=== PATIENT | male | born 1980 | race Caucasian/White ===

== ENCOUNTER → 2021-07-02 | Outpatient (CLI) | payer OTHER ==
[~2021-07-02] MED LIST: IODIXANOL 320MG/ML 100ML BTL IV ONE
[2021-07-02 09:38] LABS: Calcium 9.1 mg/dL (8.5-10.1); Potassium 5.2 mmol/L (3.5-5.1)
[2021-07-02 09:42] LABS: BUN/Creatinine Ratio 15.4
== END | disposition home or self-care (01) ==
LOC: CT 07:42
DX: N43.3 Hydrocele, unspecified (principal); M43.17 Spondylolisthesis, lumbosacral region; R31.29 Other microscopic hematuria
CPT/HCPCS: 36415; 74178; 80048; Q9967

== ENCOUNTER → 2021-07-31 | Outpatient (CLI) | payer OTHER ==
[2021-07-31 14:52] LABS: Urine Bacteria FEW /hpf (None Seen); Urine Blood TRACE /uL (Negative); Urine Mucus FEW (None Seen); Urine Specific Gravity 1.021 (1.001-1.035); Urine WBC 1 /hpf (0 - 3)
== END | disposition home or self-care (01) ==
LOC: LAB 13:39
PROVIDERS: ATTEND Urology
DX: N39.8 Other specified disorders of urinary system (principal)
CPT/HCPCS: 81001; 87086

== ENCOUNTER 2022-05-06 17:00 | Inpatient (IN) | payer OTHER ==
[~2022-05-06] VITALS: Ht 182.9 cm; Wt 95.2 kg
[2022-05-06 17:56] LABS: Basophils # (auto) 0.1 10 ^3/uL (0-0.2); Basophils % (auto) 0.8 % (0.0-2.0); Eosinophils # (auto) 0.1 10 ^3/uL (0-0.8); Eosinophils % (auto) 1.2 % (0.0-7.0); Hematocrit 44.9 % (41.0-53.0); Hemoglobin 15.5 g/dL (13.5-17.5); Lymphocytes # (auto) 1.9 10 ^3/uL (0.4-5.4); Lymphocytes % (auto) 25.6 % (10.0-50.0); Mean Corpuscular Hemoglobin 31.8 pg (28.0-32.0); Mean Corpuscular Hgb Conc. 34.4 g/dL (32.0-36.0); Mean Corpuscular Volume 92.3 fL (80.0-100.0); Monocytes # (auto) 0.6 10 ^3/uL (0-1.3); Monocytes % (auto) 8.4 % (0.0-12.0); Neutrophils # (auto) 4.7 10 ^3/uL (1.6-8.6); Nucleated Red Blood Cells % 0.1 %; Red Blood Cells 4.87 10^6/uL (4.5-5.90); Red Cell Distribution Width 12.7 % (11.8-14.3); White Blood Cell 7.3 10^3/uL (4.4-10.8)
[2022-05-06 18:15] LABS: Albumin 4.6 g/dL (3.4-5.0); Calcium 9.7 mg/dL (8.5-10.1); Potassium 4.1 mmol/L (3.5-5.1)
[2022-05-06 18:19] LABS: BUN/Creatinine Ratio 14.6; Total Protein 7.8 g/dL (6.4-8.2)
[2022-05-06 20:36] LABS: Basophils # (auto) 0 10 ^3/uL (0-0.2); Basophils % (auto) 0.6 % (0.0-2.0); Eosinophils # (auto) 0.1 10 ^3/uL (0-0.8); Eosinophils % (auto) 1.4 % (0.0-7.0); Hematocrit 45.8 % (41.0-53.0); Hemoglobin 15.9 g/dL (13.5-17.5); Lymphocytes # (auto) 2.1 10 ^3/uL (0.4-5.4); Lymphocytes % (auto) 29.3 % (10.0-50.0); Mean Corpuscular Hemoglobin 31.9 pg (28.0-32.0); Mean Corpuscular Hgb Conc. 34.8 g/dL (32.0-36.0); Mean Corpuscular Volume 91.7 fL (80.0-100.0); Monocytes # (auto) 0.6 10 ^3/uL (0-1.3); Monocytes % (auto) 8.5 % (0.0-12.0); Neutrophils # (auto) 4.4 10 ^3/uL (1.6-8.6); Neutrophils % (auto) 60.2 % (37.0-80.0); Nucleated Red Blood Cells % 0.2 %; Red Cell Distribution Width 13.1 % (11.8-14.3); White Blood Cell 7.3 10^3/uL (4.4-10.8)
[2022-05-06] MEDS ORDERED: HYDROcodone-ACET 5/325MG TAB PO PRN (21:15)
[2022-05-06] MEDS ORDERED: MORPHINE SULFATE INJ 2 MG/ml SYRG IV PRN (21:15)
[2022-05-06] MEDS ORDERED: ACETAMINOPHEN 325 MG TAB PO PRN (21:15)
[2022-05-06] MEDS ORDERED: ONDANSETRON HCL 4 MG/2 ML VIAL IV PRN (21:15)
[2022-05-06] MEDS ORDERED: SODIUM CHLORIDE 0.9% 1,000 ML IV ONE (21:30)
[2022-05-07 01:33] LABS: Urine Bacteria NONE SEEN /hpf (None Seen); Urine Blood TRACE /uL (Negative); Urine Hyaline Cast FEW /lpf (0 - 2); Urine Mucus FEW (None Seen); Urine Specific Gravity 1.015 (1.001-1.035); Urine WBC 2 /hpf (0 - 3)
[2022-05-07] MEDS ORDERED: ENOXAPARIN SOD 40 MG/0.4 ML SYRINGE SC ONE (01:45)
[2022-05-07] MEDS ORDERED: ONDANSETRON HCL 4 MG/2 ML VIAL IV ONE (01:45)
[2022-05-07] MEDS ORDERED: HYDROcodone-ACET 10/325MG TAB PO PRN (01:45)
[2022-05-07] MEDS ORDERED: PIPERACILLIN-TAZOB 3.375GM 100 ML IV ONE (06:00)
[2022-05-07] MEDS ORDERED: MORPHINE SULFATE INJ 2 MG/ml SYRG IV PRN (06:45)
[2022-05-07] MEDS ORDERED: NITROGLYCERIN 0.4 MG SL TAB SL PRN (06:45)
[2022-05-07] MEDS ORDERED: HYDROcodone-ACET 10/325MG TAB PO ONE (14:00)
[2022-05-07 15:49] LABS: Amylase 95 U/L (25-115); Lipase 312 U/L (73-393)
[2022-05-07] MEDS: TAMSULOSIN HYDROCHLORIDE 0.4 MG CAP PO SCH (18:00)
[2022-05-07] MEDS ORDERED: TAMSULOSIN HYDROCHLORIDE 0.4 MG CAP PO SCH (18:00)
[2022-05-07 22:30] VITALS: BP 121/74
[2022-05-08 02:10] VITALS: BP 121/74
[2022-05-08] MEDS ORDERED: ALBUAER3 IN (02:48)
[2022-05-08 04:22] LABS: INR 1.07 (0.9-1.15); Partial Thromboplastin Time 26.9 sec (24.6-33.4)
[2022-05-08 05:10] VITALS: BP 103/60
[2022-05-08 08:00] VITALS: BP 98/64
[2022-05-08] MEDS ORDERED: LIDOCAINE HCL (LOCAL ANESTH.) 0.5 % 50ML MDV IJ ONE (10:43)
[2022-05-08] MEDS ORDERED: KETOROLAC TROMETH 30 MG/ML 1ML VIAL IV ONE (11:00)
[2022-05-08] MEDS ORDERED: METOCLOPRAMIDE HCL 5MG/ml INJ 2ml VIAL IV PRN (11:00)
[2022-05-08] MEDS ORDERED: HYDROmorphone HCL 2 MG/ML VL/or syr IV PRN ×2 (11:00)
[2022-05-08] MEDS ORDERED: MORPHINE SULFATE 4 MG/ML SYR/VIAL IV PRN (11:00)
[2022-05-08] MEDS ORDERED: SODIUM CHLORIDE LOCK 10 ML ONE (11:05)
[2022-05-08] MEDS ORDERED: MIDAZOLAM HCL 2MG/2ML 2ml VIAL (1mg/ml) ONE (11:05)
[2022-05-08] MEDS ORDERED: PROPOFOL 10 MG/ML 20 ML IV ONE (11:05)
[2022-05-08] MEDS ORDERED: DexAMETHasone SOD PHOS 10MG/1ML VIAL INJ ONE (11:05)
[2022-05-08] MEDS ORDERED: fentaNYL CITRATE 100 MCG/2 ML VL ONE (11:05)
[2022-05-08] MEDS ORDERED: HYDROcodone-ACET 10/325MG TAB PO PRN (12:30)
[2022-05-08] MEDS ORDERED: ceFAZolin 1GM/50ML 100 ML IV ONE (13:21)
[2022-05-08] MEDS ORDERED: HYDROmorphone HCL 2 MG/ML VL/or syr ONE (14:59)
[2022-05-08] MEDS: HYDROcodone-ACET 10/325MG TAB PO PRN ×2 (16:13→21:19)
[2022-05-08 16:55] VITALS: BP 118/81
[2022-05-08] MEDS: TAMSULOSIN HYDROCHLORIDE 0.4 MG CAP PO SCH (19:00)
[2022-05-08 22:00] VITALS: BP 128/76
[2022-05-09] MEDS: HYDROcodone-ACET 10/325MG TAB PO PRN ×4 (01:38→17:39)
[2022-05-09 05:10] VITALS: BP 110/66
[2022-05-09 09:00] VITALS: BP 115/74
[2022-05-09] MEDS ORDERED: CEFAZOLIN IV ONE (11:09)
[2022-05-09] MEDS ORDERED: D5W 5% IV ONE (11:09)
[2022-05-09] MEDS ORDERED: TAM04C PO (11:43)
[2022-05-09 13:00] VITALS: BP 116/69
[2022-05-09] MEDS ORDERED: LACTULOSE 20Gm/30ML SOLN PO ONE (13:45)
[2022-05-09 17:00] VITALS: BP 121/69
[2022-05-09] MEDS: TAMSULOSIN HYDROCHLORIDE 0.4 MG CAP PO SCH (17:38)
== END 2022-05-09 21:30 | DRG 711 ==
LOC: EDBD 17:00 → EEVIPCON 17:00 → ER 17:00 → UNDOADMIN 21:16 → OVERFLOW 21:16 → WEST WING 05-07 23:04
PROVIDERS: ADMIT Internal Medicine; ATTEND Internal Medicine
PROC: 0VB70ZZ Excision of Left Tunica Vaginalis, Open Approach (ICD-10-PCS; principal; 2022-05-08 13:30)
PROC: 0TJB8ZZ Inspection of Bladder, Via Natural or Artificial Opening Endoscopic (ICD-10-PCS; 2022-05-08 13:30)
DX: N43.3 Hydrocele, unspecified (principal); K85.90 Acute pancreatitis without necrosis or infection, unspecified; N32.0 Bladder-neck obstruction; J45.909 Unspecified asthma, uncomplicated; Z20.822 Contact with and (suspected) exposure to COVID-19; R10.2 Pelvic and perineal pain; N40.1 Benign prostatic hyperplasia with lower urinary tract symptoms; R33.8 Other retention of urine; Z79.899 Other long term (current) drug therapy; Z80.3 Family history of malignant neoplasm of breast; Z80.7 Family history of other malignant neoplasms of lymphoid, hematopoietic and related tissues; Z90.49 Acquired absence of other specified parts of digestive tract
CPT/HCPCS: 36415; 74176; 80053; 81001; 82150; 83605; 83690; 84154; 85025; 85610; 85730; 86850; 86900; 86901; 87040; 87426; 96361; 96365; 96366; 96372; 96375; 96376; G0378; J0690; J1100; J2250; J2405; J2543; J2704; J7060

== ENCOUNTER 2022-05-12 19:13 | Inpatient (IN) | payer OTHER ==
[~2022-05-12] VITALS: Ht 177.8 cm; Wt 66.0 kg
[~2022-05-12 19:13] MED LIST changes: +ALBUAER3 IN; -IODIXANOL 320MG/ML 100ML BTL IV ONE; +TAM04C PO
[2022-05-12] MEDS ORDERED: SODIUM CHLORIDE 0.9% 1,000 ML IVB ONE (19:30)
[2022-05-12 20:00] LABS: Basophils # (auto) 0.1 10 ^3/uL (0-0.2); Basophils % (auto) 0.5 % (0.0-2.0); Eosinophils # (auto) 0.1 10 ^3/uL (0-0.8); Eosinophils % (auto) 0.6 % (0.0-7.0); Hematocrit 42.1 % (41.0-53.0); Hemoglobin 15.1 g/dL (13.5-17.5); Lymphocytes # (auto) 1.3 10 ^3/uL (0.4-5.4); Lymphocytes % (auto) 12.9 % (10.0-50.0); Mean Corpuscular Hemoglobin 32.3 pg (28.0-32.0); Mean Corpuscular Hgb Conc. 35.8 g/dL (32.0-36.0); Mean Corpuscular Volume 90.2 fL (80.0-100.0); Monocytes # (auto) 0.9 10 ^3/uL (0-1.3); Monocytes % (auto) 8.5 % (0.0-12.0); Neutrophils % (auto) 77.5 % (37.0-80.0); Nucleated Red Blood Cells % 0.1 %; Red Blood Cells 4.67 10^6/uL (4.5-5.90); Red Cell Distribution Width 12.7 % (11.8-14.3); White Blood Cell 10.3 10^3/uL (4.4-10.8)
[2022-05-12 20:13] LABS: Chloride 106 mmol/L (98-107); Potassium 3.9 mmol/L (3.5-5.1); Sodium 141 mmol/L (136-145)
[2022-05-12 20:15] LABS: Salicylate < 1.7 mg/dL (2.8-20.0)
[2022-05-12 20:17] LABS: Acetaminophen < 2.0 ug/mL (10-30)
[2022-05-12 20:19] LABS: Alanine Aminotransferase 23 U/L (16-61); Albumin 4.3 g/dL (3.4-5.0); Alkaline Phosphatase 77 U/L (45-117); Anion Gap 10 (5-15); Aspartate Aminotransferase 14 U/L (15-37); BUN/Creatinine Ratio 18.2; Bilirubin, Total 0.8 mg/dL (0.2-1.0); Blood Alcohol < 3.0 mg/dL (0-5); Blood Urea Nitrogen 14 mg/dL (7-18); Calcium 9.3 mg/dL (8.5-10.1); Carbon Dioxide 25 mmol/L (21-32); GFR African American 143 mL/min; GFR Non-African American 118 mL/min; Glucose 105 mg/dL (74-106); Total Protein 7.9 g/dL (6.4-8.2)
[2022-05-12] MEDS ORDERED: ONDANSETRON HCL 4 MG/2 ML VIAL IV PRN (22:15)
[2022-05-13] MEDS: D5W/SOD CHL 0.45% 1,000 ML IV SCH ×3 (01:42→09:37)
[2022-05-13 03:27] LABS: Alcohol, Urine < 3.0 mg/dL (0-10); Amphetamine Screen, Urine NEGATIVE (NEGATIVE); Barbiturate Scree,Urine NEGATIVE (NEGATIVE); Benzodiazephine Screen, Urine NEGATIVE (NEGATIVE); Cannabinoid Screen, Urine NEGATIVE (NEGATIVE); Cocaine Screen, Urine NEGATIVE (NEGATIVE); Opiate Scree,Urine NEGATIVE (NEGATIVE); Phencyclidine Screen, Urine NEGATIVE (NEGATIVE)
[2022-05-13 03:48] LABS: Urine Amorphous Crystal FEW /hpf (None Seen); Urine Bacteria FEW /hpf (None Seen); Urine WBC 1 /hpf (0 - 3)
[2022-05-13 03:51] LABS: Urine Blood 1+ /uL (Negative)
[2022-05-13 05:23] VITALS: BP 131/86
[2022-05-13 08:20] VITALS: BP 114/77
[2022-05-13 09:00] VITALS: BP 114/77
[2022-05-13] MEDS: ENOXAPARIN SOD 40 MG/0.4 ML SYRINGE SC SCH (09:37)
[2022-05-13 13:00] VITALS: BP 123/84
[2022-05-13] MEDS ORDERED: OMNIPAQUE ORAL SOLN 500ml 12mg/ml PO ONE (13:13)
[2022-05-13] MEDS ORDERED: IOHEXOL 300 MG/ML 100ML BOTTLE IJ ONE (16:05)
[2022-05-13 17:00] VITALS: BP 120/79
[2022-05-13] MEDS ORDERED: ALBUTEROL SULF HFA 90MCG INH 200DOSE IN PRN (19:30)
[2022-05-13 22:00] VITALS: BP 123/75
[2022-05-14] MEDS: D5W/SOD CHL 0.45% 1,000 ML IV SCH ×2 (03:02→06:15)
[2022-05-14 05:00] VITALS: BP 125/86
[2022-05-14 07:11] LABS: Potassium 3.9 mmol/L (3.5-5.1)
[2022-05-14 07:14] LABS: Basophils # (auto) 0 10 ^3/uL (0-0.2); Basophils % (auto) 0.5 % (0.0-2.0); Eosinophils # (auto) 0.2 10 ^3/uL (0-0.8); Hematocrit 39.6 % (41.0-53.0); Hemoglobin 14.2 g/dL (13.5-17.5); Lymphocytes # (auto) 1.7 10 ^3/uL (0.4-5.4); Lymphocytes % (auto) 29.6 % (10.0-50.0); Mean Corpuscular Hemoglobin 32.5 pg (28.0-32.0); Mean Corpuscular Hgb Conc. 35.9 g/dL (32.0-36.0); Mean Corpuscular Volume 90.4 fL (80.0-100.0); Monocytes # (auto) 0.6 10 ^3/uL (0-1.3); Monocytes % (auto) 10.9 % (0.0-12.0); Neutrophils # (auto) 3.1 10 ^3/uL (1.6-8.6); Red Blood Cells 4.38 10^6/uL (4.5-5.90); White Blood Cell 5.6 10^3/uL (4.4-10.8)
[2022-05-14 07:18] LABS: Albumin 3.8 g/dL (3.4-5.0); BUN/Creatinine Ratio 12.5; Bilirubin, Total 1.3 mg/dL (0.2-1.0); Calcium 9.2 mg/dL (8.5-10.1); Total Protein 6.5 g/dL (6.4-8.2)
[2022-05-14 08:00] VITALS: BP 126/71
[2022-05-14 09:00] VITALS: BP 126/71
[2022-05-14] MEDS: ENOXAPARIN SOD 40 MG/0.4 ML SYRINGE SC SCH (09:18)
[2022-05-14] MEDS ORDERED: traMADol HCL 50 MG TAB PO PRN (11:30)
[2022-05-14 13:00] VITALS: BP 119/85
[2022-05-14 16:44] VITALS: BP 116/78
[2022-05-14 22:00] VITALS: BP 131/90
[2022-05-14] MEDS: NAPROXEN 500 MG TAB PO SCH (22:30)
[2022-05-15 05:00] VITALS: BP 109/72
[2022-05-15 08:00] VITALS: BP 118/67
[2022-05-15 08:48] VITALS: BP 118/67
[2022-05-15] MEDS: NAPROXEN 500 MG TAB PO SCH (09:24)
[2022-05-15] MEDS: ENOXAPARIN SOD 40 MG/0.4 ML SYRINGE SC SCH (09:24)
[2022-05-15 12:01] VITALS: BP 127/76
[2022-05-15 12:33] VITALS: BP 127/76
[2022-05-15 15:57] VITALS: BP 129/56
== END 2022-05-15 16:14 | disposition home or self-care (01) | DRG 392 ==
LOC: EDBD 19:13 → EEVIPCON 19:17 → ER 19:17 → OVERFLOW 22:18 → WEST WING 05-13 03:28
PROVIDERS: ADMIT Internal Medicine; ATTEND Internal Medicine
DX: R10.9 Unspecified abdominal pain (principal); S00.93XA Contusion of unspecified part of head, initial encounter; S16.1XXA Strain of muscle, fascia and tendon at neck level, initial encounter; Z20.822 Contact with and (suspected) exposure to COVID-19; J45.909 Unspecified asthma, uncomplicated; W18.39XA Other fall on same level, initial encounter; Y93.89 Activity, other specified; Z80.3 Family history of malignant neoplasm of breast; Z80.7 Family history of other malignant neoplasms of lymphoid, hematopoietic and related tissues; Y92.89 Other specified places as the place of occurrence of the external cause; Y99.8 Other external cause status
CPT/HCPCS: 36415; 70450; 72040; 72070; 74177; 80053; 80307; 80320; 80329; 81001; 85025; 87040; 87081; 87086; 87426; 93005; 96360; G0378